=== PATIENT | female | born 1990 | race African-American/Black ===

== ENCOUNTER 2017-07-13 12:21 | Inpatient (IN) ==
[2017-07-13 13:05] LABS: Apearance,Urine CLEAR (Clear); Bilirubin,Urine Negative (Negative); Blood, Urine Negative (Negative); Glucose,Urine (UA) Negative (Negative); Ketones,Urine Negative (Negative); Mucus,Urine Occasional /LPF (Occasional); Nitrite,Urine Negative (Negative); Protein,Urine Negative; RBC,Urine 2 /HPF (0-4); Squamous Epithelial Cell,Urine Occasional /HPF (0-10); Urine Color Yellow (Yellow); Urine Specific Gravity 1.017 (1.001-1.035); WBC,Urine 2 /HPF (0-6)
[2017-07-13] MEDS ORDERED: LACTATED RINGERS 1,000 ML IV ONE (13:47)
[2017-07-13] MEDS: LACTATED RINGERS 1,000 ML IV SCH (15:30)
[2017-07-13] MEDS ORDERED: MEPERIDINE 50 MG/1 ML VIAL IV PRN (15:45)
[2017-07-13] MEDS ORDERED: ONDANSETRON 4 MG/2 ML VIAL IV PRN (15:45)
[2017-07-13] MEDS ORDERED: MAGNESIUM SULF RIDER 100 ML IV ONE (15:48)
[2017-07-13] MEDS ORDERED: MAGNESIUM SULF DRIP 40 GM/1,000 ML ML IV SCH (16:00)
[2017-07-13] MEDS ORDERED: BETAMETH SODIUM PHOS/ACETATE 30 MG/5 ML VIAL IM SCH (16:00)
[2017-07-13 16:17] LABS: Basophils % 0.1 % (0.0-0.8); Eosinophils % 0.4 % (0.00-10.9); Hematocrit 30.4 VOL% (35.7-47.0); Hemoglobin 10.2 GM/DL (12.0-16.0); Immature Granulocytes % 0.8 %; Immature Granulocytes Absolute 0.07 #; Lymphocytes # 2.6 10*3/uL (1.4-4.0); Lymphocytes % 28.6 % (21.3-54.2); Mean Corpuscular HGB Conc 33.6 GM/DL (32-36); Mean Corpuscular Hemoglobin 30 PG (27-34); Mean Corpuscular Volume 90.7 FL (87-102); Mean Platelet Volume 10.5 FL (9.6-12.0); Monocytes # 0.6 10*3/uL (0.11-0.8); Monocytes % 6.6 % (1.7-12.7); Neutrophils # 5.8 10*3/uL (1.4-7.4); Neutrophils % 63.5 % (38.7-73.9); Platelet Count 205 T/CUMM (130-400); Red Blood Count 3.35 MC/CUMM (3.8-5.5); Red Cell Distribution Width 12.2 % (9.3-17.3); White Blood Count 9.1 T/CUMM (4-12)
[2017-07-13 16:47] LABS: Apearance,Urine CLEAR (Clear); Bacteria,Urine Moderate /HPF (Few); Bilirubin,Urine Negative (Negative); Blood, Urine Negative (Negative); Glucose,Urine (UA) Negative (Negative); Ketones,Urine 80 mg/dL (Negative); Mucus,Urine Occasional /LPF (Occasional); Nitrite,Urine Negative (Negative); Protein,Urine Negative; RBC,Urine 1 /HPF (0-4); Squamous Epithelial Cell,Urine Occasional /HPF (0-10); Urine Color Yellow (Yellow); Urine Specific Gravity 1.016 (1.001-1.035); Urine Urobilinogen < 2.0 EU/DL (0.2-1.0); WBC,Urine 2 /HPF (0-6)
[2017-07-13 17:04] LABS: Alanine Aminotransferase 20 U/L (13-56); Albumin 2.3 G/DL (3.4-5.0); Alkaline Phosphatase 164 U/L (45-117); Aspartate Amino Transferase 11 U/L (0-37); Bilirubin,Total < 0.39 MG/DL (0.2-1.0); Blood Urea Nitrogen 4 MG/DL (7-18); Calcium 8.9 MG/DL (8.5-10.1); Glucose 68 MG/DL (74-106); Osmolality,Calculated 269.7 MOS/KG (273-304); Sodium 138 MMOL/L (136-145)
[2017-07-13] MEDS ORDERED: BUTORPHANOL 1 MG/ML VIAL IV PRN (20:52)
[2017-07-14] MEDS: LACTATED RINGERS 1,000 ML IV SCH (01:58)
[2017-07-14] MEDS ORDERED: BETAMETH SODIUM PHOS/ACETATE 30 MG/5 ML VIAL IM SCH (04:15)
[2017-07-14] MEDS ORDERED: CITRIC ACID/SODIUM CITRATE 30 ML UDCUP PO ONE (07:43)
[2017-07-14] MEDS ORDERED: FAMOTIDINE 20 MG/2 ML VIAL IV ONE (07:43)
[2017-07-14] MEDS ORDERED: LACTATED RINGERS 1,000 ML IV ONE ×2 (07:43→13:49)
[2017-07-14] MEDS ORDERED: OXYTOCIN/LR 30 UNIT/1,000 ML BAG IV ONE (07:44)
[2017-07-14] MEDS ORDERED: ceFAZolin 2,000 MG in PREMIX 1 EACH IV ONE (07:44)
[2017-07-14] MEDS ORDERED: OXYTOCIN 10 UNIT/ML VIAL IM ONE (07:44)
[2017-07-14] MEDS ORDERED: MORPHINE 10 MG/10 ML VIAL ONE (09:55)
[2017-07-14] MEDS ORDERED: fentaNYL 100 MCG/2 ML VIAL ONE (09:55)
[2017-07-14 10:08] LABS: Cord Arterial Blood HCO3 20.6 MMOL/L
[2017-07-14 10:10] LABS: Cord Venous Blood HCO3 20.5 MMOL/L; Cord Venous Blood PCO2 35.2 MMHG; Cord Venous Blood PO2 36.8
[2017-07-14 10:11] LABS: Cord Arterial Blood HCO3 20.9 MMOL/L
[2017-07-14 10:17] LABS: Cord Venous Blood HCO3 18.5 MMOL/L; Cord Venous Blood PCO2 28.5 MMHG; Cord Venous Blood PO2 56.1 MMHG
[2017-07-14] MEDS ORDERED: MEASLES/MUMPS/RUBELLA VACCINE 0.5 ML VIAL SUBCUT ONE (12:46)
[2017-07-14] MEDS ORDERED: DIPH/TET/ACEL PERT BOOSTER VACCINE 0.5 ML VIAL IM ONE (12:46)
[2017-07-14] MEDS ORDERED: BISACODYL 10 MG SUPP RECTAL PRN (12:46)
[2017-07-14] MEDS ORDERED: HYDROCORTISONE 2.5% RECTAL CREAM 30 GM TUBE TOP PRN (12:46)
[2017-07-14] MEDS ORDERED: WITCH HAZEL PADS 100/JAR TOP PRN (12:46)
[2017-07-14] MEDS ORDERED: oxyCODONE/ACETAMINOPHEN 5-325 MG TABLET PO PRN (12:46)
[2017-07-14] MEDS ORDERED: ONDANSETRON 4 MG/2 ML VIAL IV PRN (12:46)
[2017-07-14] MEDS ORDERED: ACETAMINOPHEN 325 MG TABLET PO PRN (12:46)
[2017-07-14] MEDS ORDERED: RHO(D) IMMUNE GLOBULIN 300 MCG SYRINGE IM ONE (12:46)
[2017-07-14] MEDS ORDERED: BENZOCAINE 20%/MENTHOL 0.5% SPRAY 56 GM CAN TOP PRN (12:46)
[2017-07-14] MEDS ORDERED: LANOLIN 50% CREAM 0.3 OZ TUBE TOP PRN (12:46)
[2017-07-14] MEDS ORDERED: OXYTOCIN/LR 20 UNIT/1,000 ML BAG IV ONE (12:46)
[2017-07-14] MEDS ORDERED: ONDANSETRON 4 MG/2 ML VIAL ONE (13:48)
[2017-07-14] MEDS: ceFAZolin 1,000 MG in SYRINGE 1 EACH IV SCH (16:46)
[2017-07-14 17:30] LABS: Basophils % 0.1 % (0.0-0.8); Hematocrit 30.5 VOL% (35.7-47.0); Hemoglobin 10.2 GM/DL (12.0-16.0); Immature Granulocytes % 0.8 %; Immature Granulocytes Absolute 0.11 #; Lymphocytes # 1.8 10*3/uL (1.4-4.0); Lymphocytes % 12.8 % (21.3-54.2); Mean Corpuscular HGB Conc 33.4 GM/DL (32-36); Mean Corpuscular Hemoglobin 30 PG (27-34); Mean Corpuscular Volume 90.5 FL (87-102); Mean Platelet Volume 10.4 FL (9.6-12.0); Monocytes # 0.7 10*3/uL (0.11-0.8); Monocytes % 5.2 % (1.7-12.7); Neutrophils # 11.5 10*3/uL (1.4-7.4); Neutrophils % 81.1 % (38.7-73.9); Platelet Count 258 T/CUMM (130-400); Red Blood Count 3.37 MC/CUMM (3.8-5.5); Red Cell Distribution Width 12.2 % (9.3-17.3); White Blood Count 14.2 T/CUMM (4-12)
[2017-07-14] MEDS: oxyCODONE/ACETAMINOPHEN 5-325 MG TABLET PO PRN (17:50)
[2017-07-14] MEDS: DOCUSATE SODIUM 100 MG CAPSULE PO SCH (20:06)
[2017-07-15] MEDS: LACTATED RINGERS 1,000 ML IV SCH ×2 (00:07→09:28)
[2017-07-15] MEDS: ceFAZolin 1,000 MG in SYRINGE 1 EACH IV SCH (01:18)
[2017-07-15 03:25] LABS: Basophils % 0.1 % (0.0-0.8); Eosinophils % 0.1 % (0.00-10.9); Hematocrit 30.5 VOL% (35.7-47.0); Hemoglobin 10.1 GM/DL (12.0-16.0); Immature Granulocytes % 0.9 %; Lymphocytes # 1.4 10*3/uL (1.4-4.0); Lymphocytes % 12.1 % (21.3-54.2); Mean Corpuscular HGB Conc 33.1 GM/DL (32-36); Mean Corpuscular Hemoglobin 30 PG (27-34); Mean Corpuscular Volume 91.3 FL (87-102); Mean Platelet Volume 10.9 FL (9.6-12.0); Monocytes # 1.1 10*3/uL (0.11-0.8); Monocytes % 9.3 % (1.7-12.7); Neutrophils # 9.1 10*3/uL (1.4-7.4); Neutrophils % 77.5 % (38.7-73.9); Platelet Count 244 T/CUMM (130-400); Red Blood Count 3.34 MC/CUMM (3.8-5.5); Red Cell Distribution Width 12.1 % (9.3-17.3); White Blood Count 11.7 T/CUMM (4-12)
[2017-07-15] MEDS ORDERED: HYDROmorphone 2 MG/1 ML VIAL IV PRN (09:04)
[2017-07-15] MEDS ORDERED: guaiFENesin/CODEINE 5 ML LIQUID PO PRN (10:23)
[2017-07-15] MEDS: oxyCODONE/ACETAMINOPHEN 5-325 MG TABLET PO PRN ×2 (13:30→19:34)
[2017-07-15] MEDS ORDERED: INFLUENZA VIRUS VACCINE 0.5 ML SYRINGE IM ONE (16:28)
[2017-07-15] MEDS: DOCUSATE SODIUM 100 MG CAPSULE PO SCH ×3 (18:45→21:57)
[2017-07-16] MEDS: IBUPROFEN 800 MG TABLET PO PRN ×3 (04:25→16:51)
[2017-07-16] MEDS: oxyCODONE/ACETAMINOPHEN 5-325 MG TABLET PO PRN ×3 (04:25→16:50)
[2017-07-16] MEDS ORDERED: SIMETHICONE CHEW 80 MG TABLET PO PRN (09:06)
[2017-07-16] MEDS: MAGNESIUM HYDROXIDE SUSP 30 ML UDCUP PO PRN ×2 (10:49→21:00)
[2017-07-16] MEDS: OSELTAMIVIR 75 MG CAPSULE PO SCH ×2 (10:51→21:00)
[2017-07-16] MEDS: DOCUSATE SODIUM 100 MG CAPSULE PO SCH ×2 (10:51→21:00)
[2017-07-17] MEDS: oxyCODONE/ACETAMINOPHEN 5-325 MG TABLET PO PRN ×2 (00:36→11:11)
[2017-07-17] MEDS: IBUPROFEN 800 MG TABLET PO PRN (00:37)
[2017-07-17 08:11] VITALS: BP 111/79
[2017-07-17] MEDS: DOCUSATE SODIUM 100 MG CAPSULE PO SCH (09:16)
[2017-07-17] MEDS: OSELTAMIVIR 75 MG CAPSULE PO SCH (09:16)
== END 2017-07-17 20:40 | disposition home or self-care (01) | DRG 765 ==
LOC: N.LDOUT 12:21 → N.LD 12:23 → N.OB 07-14 12:46
PROVIDERS: ADMIT Obstetrics & Gynecology; ATTEND Obstetrics & Gynecology
PROC: LDCSECT (ICD-10-PCS; 2017-07-14 09:00)